=== PATIENT | male | born 1970 | race Two or more races ===

== ENCOUNTER → 2017-09-15 | Outpatient (CLI) | payer OTHER | END | disposition home or self-care (01) | LOC: HKI 11:36 | DX: S50.01XD Contusion of right elbow, subsequent encounter (principal); S86.912D Strain of unspecified muscle(s) and tendon(s) at lower leg level, left leg, subsequent encounter; X58.XXXD Exposure to other specified factors, subsequent encounter | CPT/HCPCS: 73080; 73080-LT; 73080-RT; 73564-LT ==

== ENCOUNTER → 2017-10-28 | Outpatient (CLI) | payer OTHER | END | disposition home or self-care (01) | LOC: HKI 13:12 | DX: S83.242A Other tear of medial meniscus, current injury, left knee, initial encounter (principal); X58.XXXA Exposure to other specified factors, initial encounter; Y92.89 Other specified places as the place of occurrence of the external cause | CPT/HCPCS: G0463 ==

== ENCOUNTER 2018-03-19 11:35 | Day surgery (SDC) | payer OTHER ==
[2018-03-19] MEDS ORDERED: ONDANSETRON 4 MG INJ IV (13:00)
[2018-03-19] MEDS ORDERED: MIDAZOLAM 1 MG/ML 2 ML INJ IV (13:00)
[2018-03-19] MEDS ORDERED: ONDANSETRON 4 MG INJ (13:00)
[2018-03-19] MEDS ORDERED: OXYCODONE/ACETAMINOPHEN (5/325) TAB PO (13:00)
[2018-03-19] MEDS ORDERED: DIPHENHYDRAMINE 50 MG INJ IV (13:00)
[2018-03-19] MEDS ORDERED: PROPOFOL 20 ML (13:00)
[2018-03-19] MEDS ORDERED: HYDROmorphONE 1 MG/5 ML IV SYRINGE IV ×2 (13:00)
[2018-03-19] MEDS ORDERED: MIDAZOLAM 1 MG/ML 2 ML INJ (13:00)
[2018-03-19] MEDS ORDERED: CEFAZOLIN 1 GM INJ (13:00)
[2018-03-19] MEDS ORDERED: NEOSTIGMINE 3 MG/3 ML SYRINGE (13:00)
[2018-03-19] MEDS ORDERED: ROCURONIUM 50 MG INJ (13:00)
[2018-03-19] MEDS ORDERED: MEPERIDINE 25 MG INJ IV (13:00)
[2018-03-19] MEDS ORDERED: GLYCOPYRROLATE 0.4 MG INJ (13:00)
[2018-03-19] MEDS ORDERED: EPHEDrine SULFATE 50 MG/5 ML SYG IV (13:00)
[2018-03-19] MEDS ORDERED: IPRATROPIUM (NEB) 0.5 MG/2.5 ML AMP HHN (13:00)
[2018-03-19] MEDS ORDERED: hydrALAzine 20 MG INJ IV (13:00)
[2018-03-19] MEDS ORDERED: ALBUTEROL 0.083% (NEB) 2.5 MG/3 ML AMP HHN (13:00)
[2018-03-19] MEDS ORDERED: FENTAnyl 50 MCG/ML VIAL (13:00)
[2018-03-19] MEDS ORDERED: LABETALOL HCL 20MG INJ IV (13:00)
[2018-03-19] MEDS ORDERED: FENTAnyl 50 MCG/ML VIAL IV ×3 (13:00)
[2018-03-19] MEDS ORDERED: TRIMETHOBENZAMIDE 100 MG/ML VIAL IM (13:00)
[2018-03-19] MEDS ORDERED: ROPIVACAINE 0.5 % 30 ML VIAL (13:02)
[2018-03-19] MEDS ORDERED: morphine 2 MG INJ IV (13:30)
[2018-03-19] MEDS ORDERED: PHENYLephrine (100 MCG/ML) 10ML SYG (13:54)
[2018-03-19] MEDS: ROPIVACAINE 0.5 % 30 ML VIAL (15:41)
[2018-03-19] MEDS: HYDROmorphONE 1 MG/5 ML IV SYRINGE IV (16:42)
[2018-03-19] MEDS: OXYCODONE/ACETAMINOPHEN (5/325) TAB PO (16:52)
== END 2018-03-19 17:45 | disposition home or self-care (01) ==
LOC: SDS 11:35
DX: S83.512D Sprain of anterior cruciate ligament of left knee, subsequent encounter (principal); S83.242D Other tear of medial meniscus, current injury, left knee, subsequent encounter; X58.XXXD Exposure to other specified factors, subsequent encounter; M23.42 Loose body in knee, left knee
CPT/HCPCS: 29881; 82306